=== PATIENT | female | born 1955 | race Two or more races ===

== ENCOUNTER 2023-05-01 08:14 | Day surgery (SDC) | payer OTHER | END 2023-05-01 12:35 | disposition home or self-care (01) | LOC: AMB-ENDOS 08:14 | PROVIDERS: ATTEND Colon & Rectal Surgery | DX: K57.30 Diverticulosis of large intestine without perforation or abscess without bleeding (principal); K62.5 Hemorrhage of anus and rectum; R19.4 Change in bowel habit; Z20.822 Contact with and (suspected) exposure to COVID-19; Z88.6 Allergy status to analgesic agent; K64.8 Other hemorrhoids ==

== ENCOUNTER 2023-07-31 06:49 | Day surgery (SDC) | payer OTHER | END 2023-07-31 12:25 | disposition home or self-care (01) | LOC: AMB-ENDOS 06:49 | PROVIDERS: ATTEND Colon & Rectal Surgery | DX: K57.30 Diverticulosis of large intestine without perforation or abscess without bleeding (principal); K64.8 Other hemorrhoids; Z20.822 Contact with and (suspected) exposure to COVID-19 ==